=== PATIENT | female | born 1975 | race African-American/Black ===

== ENCOUNTER 2016-07-18 12:55 | Emergency (ER) ==
--- NOTE | 2016-07-18 14:09 | PROVIDER DOCUMENTATION ---
HPI-Musculoskeletal Pain/Inj - GENERAL Chief Complaint: Extremity Injury Stated Complaint: STUCK PENCIL IN HAND Time Seen by Provider: 07/18/16 14:08 Past History - Adult - PAST MEDICAL HISTORY-ADULT Major Childhood Illnesses: reports: denies history Cardiovascular: reports: denies history Respiratory: reports: asthma Gastrointestinal: reports: denies history Obstetrical/Gynecological: reports: denies history Genitourinary: reports: denies history Musculoskeletal: reports: denies history Neurological: reports: denies history Endocrine/Immune: reports: denies history Other Conditions: reports: denies history - PRIOR SURGERIES/PROCEDURES Surgical/Procedure History: reports: none, other (allergies) - PRIOR HOSPITALIZATIONS Prior Hospitalizations: reports: for other non-related - IMMUNIZATION STATUS Childhood Immunizations: See Nurse Assessment Flu Vaccine: See Nurse Assessment - FAMILY HISTORY Family History: reviewed, not pertinent Physical Exam-Injury Related - Physical Exam-Injury Related Initial Vital Signs Reviewed: Yes General Appearance: appears well, alert Eyes: PERRL/EOMI, pink conjunctivae Head, Ears, Nose, Mouth & Throat: normocephalic/atraumatic, moist mucous membranes Respiratory: chest non-tender, lungs clear, normal breath sounds Cardiovascular: regular rate, rhythm Back Exam: normal inspection Extremity: normal gait, tenderness (left thenar eminence) Integumentary: other (puncture wound to left thenar eminence, no FB palpated, bleeding controlled) Neurologic: grossly normal, no motor/sensory deficits Psych/Mental Status: normal thought content, normal thought process - Glascow Coma Score Best Eye Response (Jake): (4) open spontaneously Best Verbal Response ([place]): (5) oriented Best Motor Response ([place]): (6) obeys commands Jake Total: 15 Progress - PLAN OF CARE/RESULTS Progress/Plan/Lab Results: Vital Signs Temp Pulse Resp BP Pulse Ox 07/18/16 13:01 97.9 F 79 18 121/78 98 sulfamethoxazole [From Bactrim] Allergy (Intermediate, Verified 11/25/15 23:54) HIVES and swelling trimethoprim [From Bactrim] Allergy (Intermediate, Verified 11/25/15 23:54) HIVES and swelling Cabergoline 0.5 mg PO DIRECTED 08/30/15 Loratadine/Pse E.r. 24 Hr [Claritin-D 24 Hr] 1 each PO DAILY #10 tablet Montelukast Sodium [Singulair] 10 mg PO DAILY 11/13/15 Amoxicillin/Potassium Clav [Augmentin 875-125 Tablet] 1 each PO BID #20 tablet 11/25/15 Benzonatate [Tessalon] 100 mg PO TID PRN PRN #30 capsule 11/25/15 Ketorolac [Toradol] 10 mg PO Q6H PRN PRN #20 tablet 11/25/15 Prednisone 20 mg PO BID #10 tablet 11/25/15 Loratadine [Claritin] 10 mg PO QHS #60 tablet 05/06/16 Naproxen 500 mg PO BID PRN PRN #60 tablet 05/06/16 Orders Category Date Time Status HAND COMPLETE LEFT [RAD] Stat Exams 07/18/16 13:50 Taken Diph,Pertuss(Acell),Tet Vac/Pf [Boostrix Vaccine] Med 07/18/16 14:16 Discontinued 0.5 ml IM .ONCE ONE - XRAY 1 XRAY: Left XRAY Study: Hand Impression: Normal XRAY Interpretation: no FB Departure - Departure Time of Disposition Order: 14:29 DIAGNOSIS: Puncture wound of left hand Qualifiers: Encounter type: initial encounter Foreign body presence: without foreign body Qualified Code(s): S61.432A - Puncture wound without foreign body of left hand, initial encounter Disposition: HOME 01 Certified Medical Emergency: Emergent Condition: Good Additional Instructions: Keep wound clean and dry. ED Follow Up Instructions: You have been treated by a care provider in the Emergency Department. These instructions are being provided to you so you can have an understanding of how to care for yourself upon discharge. Upon discharge from the Emergency Department, you are responsible for making arrangements for follow-up care by a physician of your choice. Take all prescribed medications as directed. Return to the Emergency Department immediately for any new or worsening symptoms. You may call the Physician Referral phone number at [phone] to obtain a list of Physicians who are taking new patients. Prescriptions: Cephalexin [Keflex] 500 mg PO TID #21 capsule Attestation - Physician/ AUDELIA Attestation Patient care was provided by Advanced Practice Provider:: Yes Advanced Practice Provider:: Carin Davila Advanced Practice Provider documentation review:: The Mid-level provider documentation, treatment plan and medical decision making was reviewed by the physician who agrees with all treatment and medical decision making by the MLP.
[2016-07-18] MEDS ORDERED: BOOSTRIX VACCINE IM ONE (14:16)
--- NOTE | 2016-07-18 14:52 | Diag Imaging Result Document ---
PROCEDURE NAME: HAND COMPLETE LEFT - 07/18/2016 LEFT HAND, 3 VIEWS: COMPARISON: 11/02/2013. FINDINGS: Bones are intact and normally aligned. Joint spaces and soft tissues are clear. IMPRESSION: Negative exam.
[2016-07-18 15:17] VITALS: BP 123/88
== END 2016-07-18 15:18 | disposition home or self-care (01) ==
LOC: P.ED 12:55
DX: S61.432A Puncture wound without foreign body of left hand, initial encounter (principal); W26.8XXA Contact with other sharp object(s), not elsewhere classified, initial encounter; Z79.899 Other long term (current) drug therapy; Z79.52 Long term (current) use of systemic steroids; Z79.51 Long term (current) use of inhaled steroids; Z23 Encounter for immunization
CPT/HCPCS: 90471; 90715